=== PATIENT | female | born 1950 | race Caucasian/White ===

== ENCOUNTER 2017-04-20 06:50 | Inpatient (IN) | payer OTHER, MEDICAID ==
[~2017-04-20] VITALS: Ht 160 cm; Wt 87.1 kg
[2017-04-20 07:34] VITALS: BP 149/85
--- NOTE | 2017-04-20 07:41 | NUR ---
Patient transferred to bed 5 via wheelchair by tech. RN evaluating patient at bedside.
--- NOTE | 2017-04-20 07:44 | NUR ---
PATIENT PT PRESENTS TO ER W/C/O RECTAL BLEEDING R/T CONSTIPATION X2 DAYS. HX DM, HTN. .PT STATES SHE FEELS NAUSEOUS BUT DENIES VOMITTING; SKIN IS PINK/WARM/DRY; AAOX4 WITH EVEN AND STEADY GAIT; LUNGS CLEAR BL; HR EVEN AND REGULAR; PT DENIES ANY FEVER, CP, SOB, OR COUGH AT THIS TIME; PATIENT STATES PAIN OF 9/10 AT THIS TIME;PATIENT POSITIONED FOR COMFORT; HOB ELEVATED; BEDRAILS UP X2; BED DOWN. ER MD MADE AWARE OF PT STATUS.
--- NOTE | 2017-04-20 07:56 | NUR ---
CHRISTIANO JESUS AT BEDSIDE.
[2017-04-20] MEDS ORDERED: MORPHINE SULFATE 4 MG/ML SYR IVP ONE (08:00)
[2017-04-20] MEDS ORDERED: NACL 0.9% 1,000 ML IV SCH (08:00)
[2017-04-20] MEDS ORDERED: ONDANSETRON 4 MG/2 ML VIAL IVP ONE (08:00)
--- NOTE | 2017-04-20 08:16 | NUR ---
WENT TO CT SCAN ACCOMPANIED BY TECH.
[2017-04-20 08:41] LABS: HEMATOCRIT 41.8 % (36-48); HEMOGLOBIN 13.8 g/dL (12.0-16.0); MEAN CORPUSCULAR HEMOGLOBIN 30 pg (27-31); MEAN CORPUSCULAR HGB CONC 33 g/dL (33-37); MEAN CORPUSCULAR VOLUME 90 fL (80-94); PLATELET COUNT (AUTO) 411 K/uL (140-450); RED BLOOD CELL COUNT(AUTO) 4.66 MIL/uL (4.20-5.40); RED CELL DISTRIBUTION WIDTH 12.1 % (11.6-13.7); WHITE BLOOD COUNT (AUTO) 19.6 K/uL (4.8-10.8)
[2017-04-20 09:01] LABS: ALBUMIN 4.1 g/dL (3.4-5.0); ANION GAP 19.4 (8-16); CARBON DIOXIDE 21.4 mmol/L (21-32); CREATININE 1.3 mg/dL (0.6-1.3); POTASSIUM 3.8 mmol/L (3.5-5.1); TOTAL BILIRUBIN 0.9 mg/dL (0.0-1.0)
--- NOTE | 2017-04-20 09:17 | NUR ---
DAUGHTER AT BEDSIDE;NO ACUTE DISTRESS NOTED;WILL CONTINUE TO MONITOR PT.
[2017-04-20 09:21] LABS: LYMPHOCYTES % (MANUAL) 17 % (20-46); MONOCYTES % (MANUAL) 3 % (5-12)
--- NOTE | 2017-04-20 09:42 | NUR ---
ASKED PT 3 X IF PT CAN GIVE URINE SPECIMEN;PT STATES "I CAN'T PEE RT NOW"
[2017-04-20] MEDS ORDERED: metroNIDAZOLE 500 MG/NS PREMIX 100 ML IV ONE (10:20)
[2017-04-20] MEDS ORDERED: PIPERACILLIN/TAZOBACTAM 4.5 GM in DEXTROSE 5% 100 ML IV ONE (10:20)
--- NOTE | 2017-04-20 10:30 | NUR ---
Estefany scott in [facility] - 04/20/17 at 1033 by ELIAS CALLED LAB;TALKED TO NOEMY;SHE SAID SHE HAS ALREADY DRAW BLOOD FOR BLOOD CULTURE;
--- NOTE | 2017-04-20 10:30 | NUR ---
CALLED LAB;TALKED TO MICHAEL;SHE SAID SHE HAS ALREADY DRAW BLOOD FOR BLOOD CULTURE;
[2017-04-20] MEDS ORDERED: PIPERACILLIN/TAZOBACTAM 2.25 GM VIAL IV ONE (10:32)
--- NOTE | 2017-04-20 10:52 | NUR ---
PER ARCHITECTURAL MODELER COLLEEN;1 ST BLOOD CULTURE WAS DRAW AT 0835 AND 2ND BLOOD CULTURE WAS DONE AT 0845;
[2017-04-20] MEDS ORDERED: MORPHINE SULFATE 4 MG/ML SYR IVP PRN (10:55)
[2017-04-20] MEDS ORDERED: DEXTROSE 50% 50 ML SYR IVP PRN (10:55)
[2017-04-20] MEDS ORDERED: LORazepam 2 MG/ML VIAL IVP PRN (10:55)
[2017-04-20] MEDS ORDERED: MORPHINE SULFATE 2 MG/ML SYR IVP PRN (10:55)
[2017-04-20] MEDS ORDERED: INSULIN LISPRO SLIDING SCALE 100 UNITS/ML VIAL SUBQ PRN (10:55)
[2017-04-20] MEDS ORDERED: ACET-2869 PO (11:19)
[2017-04-20] MEDS ORDERED: ORE25 (11:22)
[2017-04-20] MEDS ORDERED: OMEP20TC12 PO (11:23)
[2017-04-20] MEDS ORDERED: AMLO5TAB PO (11:25)
[2017-04-20] MEDS ORDERED: METF1000 PO (11:26)
[2017-04-20] MEDS ORDERED: ATOR40TA PO (11:27)
[2017-04-20] MEDS ORDERED: LISI30TA6 PO (11:29)
[2017-04-20] MEDS ORDERED: VITD1000 PO (11:30)
[2017-04-20] MEDS: BLOOD GLUCOSE MONITORING 1 DEV DEV FS SCH ×3 (11:30→21:00)
[2017-04-20] MEDS ORDERED: CLINICAL MONITORING MC PRN (11:40)
--- NOTE | 2017-04-20 11:47 | NUR ---
PT RESTING ON BED;NO ACUTE DISTRESS NOTED;WILL CONTINUE TO MONITOR PT.
[2017-04-20] MEDS ORDERED: ONDANSETRON 4 MG/2 ML VIAL IVP PRN (12:00)
--- NOTE | 2017-04-20 13:23 | NUR ---
Patient will be admitted to care of DR FLORENTINO. Admited to MS. Will go to room 110 B. Belongings list completed. Report to YAMILET GAR.
[2017-04-20 13:40] VITALS: BP 134/74
[2017-04-20] MEDS: metroNIDAZOLE 500 MG/NS PREMIX 100 ML IV SCH ×2 (13:48→22:20)
[2017-04-20] MEDS: NACL 0.9% 1,000 ML IV SCH ×2 (13:50→20:52)
[2017-04-20] MEDS ORDERED: LEVOFLOXACIN 750 MG/D5W PREMIX 150 ML IV SCH (14:00)
--- NOTE | 2017-04-20 14:34 | NUR ---
PT RECEIVED FROM ED VIA [employer] AT 1340, PT IS AWAKE ALERT AND OREINTED X4. C/O ABD PAIN 11/09. NO RESP DISTRESS NOTED. NS AT 100/HE WELL FLAGYL STARTED. NO TELE ORDERS FOR PT. PT IS NPO FOR NOW. NO V/V NOTED OE REPORTED. V/S STABLE.
[2017-04-20 16:20] VITALS: BP 126/55
--- NOTE | 2017-04-20 19:10 | NUR ---
RECD. RESTING IN BED, AWAKE, A/OX4. RESPIRATION EVEN AND UNLABORED. IV OF NS AT 100 ML/HR INFUSING, RIGHT AC G20. AMBULATORY TO THE BR. SAFETY MEASURES ENFORCED. PLAN OF CARE FOR THE SHIFT DISCUSSED. VERBALIZED UNDERSTANDING. NPO. DENIES PAIN 0/10.
--- NOTE | 2017-04-20 19:15 | NUR ---
Patient's Plan of Care was discussed and reviewed with SOLE INKER: MICHAEL CARBALLO
--- NOTE | 2017-04-20 19:35 | NUR ---
MORPHINE SULFATE 2MG IVP GIVEN AT 183 FOR COMPLAINT OF ABD PAIN 01/09. PT IS CURRENTLY IN BED TALKING TO DR FLORENTINO. PT; DAUGHTER IN THE ROOM TALKING TO MD WELL. NO N/V NOTED. PT WAS ASSISTED UP TO THE BATHROOM. PT'S HOME MEDICATION GIVEN TO HER DAUGHTER TO TAKE HOME.
[2017-04-20 20:00] VITALS: BP 107/52
--- NOTE | 2017-04-20 21:00 | NUR ---
NO SNACK GIVEN, PATIENT IS NPO. BS - 127. ASYMPTOMATIC.
[2017-04-21] VITALS: BP 110/58
--- NOTE | 2017-04-21 | NUR ---
STATED NO MORE DIARRHEA SINCE 1899, WILL CONTINUE TO MONITOR, NO NAUSEA NOTED.
--- NOTE | 2017-04-21 05:00 | NUR ---
INSTRUCTED TO COLLECT URINE TO BE SENT TO THE LABORATORY. VERBALIZED UNDERSTANDING.
[2017-04-21] MEDS: metroNIDAZOLE 500 MG/NS PREMIX 100 ML IV SCH ×2 (05:50→13:40)
--- NOTE | 2017-04-21 06:00 | NUR ---
SENT TO LAB URINE FOR TEST.
[2017-04-21 06:46] LABS: BASOPHILS # (AUTO) 0.1 K/uL (0.00-0.22); BASOPHILS % (AUTO) 0.6 % (0.0-2.0); EOSINOPHILS # (AUTO) 0.1 K/uL (0-0.4); EOSINOPHILS % (AUTO) 0.8 % (0.0-4.0); HEMATOCRIT 32.9 % (36-48); HEMOGLOBIN 10.9 g/dL (12.0-16.0); LYMPHOCYTES # (AUTO) 2.2 K/uL (2.5-16.5); LYMPHOCYTES % (AUTO) 19.4 % (20.5-51.1); MEAN CORPUSCULAR HEMOGLOBIN 30 pg (27-31); MEAN CORPUSCULAR HGB CONC 33 g/dL (33-37); MEAN CORPUSCULAR VOLUME 91 fL (80-94); MONOCYTES # (AUTO) 0.6 K/uL (0.8-1.0); MONOCYTES % (AUTO) 5.7 % (1.7-9.3); NEUTROPHILS # (AUTO) 8.2 K/uL (1.8-7.7); NEUTROPHILS % (AUTO) 73.5 % (42.2-75.2); PLATELET COUNT (AUTO) 328 K/uL (140-450); RED BLOOD CELL COUNT(AUTO) 3.62 MIL/uL (4.20-5.40); RED CELL DISTRIBUTION WIDTH 12.2 % (11.6-13.7); WHITE BLOOD COUNT (AUTO) 11.2 K/uL (4.8-10.8)
--- NOTE | 2017-04-21 06:47 | NUR ---
NO DIARRHEA NOTED DURING SHIFT. CONDITION REMAIN STABLE. WILL ENDORSE TO AM NURSE FOR CONTINUITY OF CARE.
[2017-04-21 06:48] LABS: APPEARANCE,URINE SL CLOUDY (CLEAR); BILIRUBIN,URINE NEGATIVE (NEGATIVE); BLOOD, URINE NEGATIVE (NEGATIVE); COLOR,URINE YELLOW (YELLOW); LEUKOCYTE ESTERASE ,URINE NEGATIVE (NEGATIVE); NITRITE, URINE NEGATIVE (NEGATIVE); UGLUCOSE NEGATIVE (NEGATIVE)
[2017-04-21] MEDS: NACL 0.9% 1,000 ML IV SCH (07:07)
[2017-04-21 07:10] LABS: RBC,URINE NONE SEEN /HPF (0-5); WBC,URINE 0-5 (RARE) /HPF (0-5)
--- NOTE | 2017-04-21 07:25 | NUR ---
RECEIVED REPORT FROM THE PEARL GLUE DRIER NURSE AT BEDSIDE FOR CONTINUITY OF CARE. PT IS SLEEPING. WILL BE BACK TO ASSESS PT.
[2017-04-21 07:28] LABS: CHOL/HDL RATIO 4.4 (1-4.5)
[2017-04-21 07:30] LABS: ALBUMIN 2.8 g/dL (3.4-5.0); ANION GAP 12.7 (8-16); CARBON DIOXIDE 24.2 mmol/L (21-32); CREATININE 0.9 mg/dL (0.6-1.3); POTASSIUM 3.9 mmol/L (3.5-5.1); TOTAL BILIRUBIN 0.5 mg/dL (0.0-1.0)
[2017-04-21 07:34] LABS: MAGNESIUM 1.8 mg/dL (1.8-2.4)
[2017-04-21 08:00] VITALS: BP 130/70
--- NOTE | 2017-04-21 08:00 | NUR ---
PT IS AWAKE AND ORIENTED. INTRODUCED OURSELVES AND UPDATED THE BOARD. PT HAS IV R AC 20G, NS AT 100ML INFUSING. SCD'S ON. SKIN INTACT. LBM: 04/21/17. DENIES ANY DIARRHEA. DENIES ABD PAIN. DENIES GI BLEEDING. DR. FLORENTINO CAME IN AND SAW PT. ORDERED SOFT DIET. TODAY'S PLAN: AMBULATE, TOLERATE DIET, AND D/C TODAY. WILL CONTINUE TO MONITOR PT.
--- NOTE | 2017-04-21 08:45 | NUR ---
PATIENT HAS BEEN SCREENED AND CATEGORIZED HIGH NUTRITION RISK. PATIENT WILL BE SEEN WITHIN 1-2 DAYS OF ADMISSION. 04/20/17-04/21/[address]
[2017-04-21] MEDS ORDERED: ENOXAPARIN 30 MG/0.3 ML SYR SUBQ SCH (09:00)
--- NOTE | 2017-04-21 09:00 | NUR ---
ADMINISTERED LOVENOX ON ABD. PT TOLERATED WELL. EDUCATED PT ON MEDICATION AND WHY IT'S GIVEN SUBCUTANEOUS. PT VERBALIZED UNDERSTANDING. WILL CONTINUE TO MONITOR PT.
--- NOTE | 2017-04-21 10:00 | NUR ---
ASSISTED PT TO THE RESTROOM. PT IS UNSTEADY ON FEET D/T B HIP PAIN. PER PT, PT TO HAVE HIP REPLACEMENT SURGERY SOON. ASSISTED BACK TO BED. RECONNECTED PT TO IV. WILL CONTINUE TO MONITOR PT.
--- NOTE | 2017-04-21 11:40 | NUR ---
JOSIAH CAZARES SPOKE WITH NORMA OF [facility] [phone] AND SHE SAID REVIEWS SHOULD BE SENT TO BOTH [facility] AND [facility]. INITIAL REVIEW FAXED TO [facility] [phone] JOSIAH George PH [phone] AND TO [facility] [phone], PH [phone]
--- NOTE | 2017-04-21 12:30 | NUR ---
TRIED EATING LUNCH. SOFT DIET. AT 2 SPOONFULS OF EVERYTHING. SLIGHT STOMACH DISCOMFORT. WILL CONTINUE TO MONITOR PT.
[2017-04-21] MEDS ORDERED: LEVOFLOXACIN 750 MG/D5W PREMIX 150 ML IV SCH (15:00)
--- NOTE | 2017-04-21 15:40 | NUR ---
PT WANTS TO GO HOME. DAUGHTER AT BEDSIDE. WILL START DISCHARGE PROCESS. PAGED DR. FLORENTINO X2 . NO RETURN CALL. WILL CONTINUE TO MONITOR PT.
[2017-04-21 16:00] VITALS: BP_SYST 135; BP_SYST 93; BP_DIAS 49; BP_DIAS 65
--- NOTE | 2017-04-21 17:00 | NUR ---
DR. FLORENTINO CALLED BACK. WANTS TO GIVE PT RX TO GO HOME WITH. HE STATES HE WILL BE HERE IN THE NEXT 2 HRS HAVE PT WAIT. WILL TALK TO PT.
--- NOTE | 2017-04-21 17:20 | NUR ---
DC INSTRUCTIONS GIVEN TO PT. ANSWERED ALL QUESTIONS. PT VERBALIZED UNDERSTANDING. PT ALREADY HAS AN APPT WITH HER PCP FOR TOMORROW. REMOVED IV,CANNULA INTACT. NO BLEEDING NOTED. ALL ARM BANDS REMOVED. PT IS ANXIOUS TO GET HOME. DID NOT WANT TO WAIT FOR RX FROM MD. WILL GET THEM FROM HER PCP TOMORROW. WILL GET DRESSED AND GET READY TO GO.
--- NOTE | 2017-04-21 17:50 | NUR ---
PT WHEELED OUT BY STUDENT RN. DAUGHTER AND SON IN LAW IN THE CAR WAITING. ALL PERSONAL BELONGING SENT WITH DAUGHTER TO THE CAR. PT IN STABLE CONDITION.
== END 2017-04-21 17:50 | disposition home or self-care (01) | DRG 392 ==
LOC: MED 06:50 → MTU 10:35
PROVIDERS: ADMIT Hospitalist; ATTEND Hospitalist
DX: K57.32 Diverticulitis of large intestine without perforation or abscess without bleeding (principal); I10 Essential (primary) hypertension; K62.5 Hemorrhage of anus and rectum; E11.9 Type 2 diabetes mellitus without complications; E78.5 Hyperlipidemia, unspecified; E66.9 Obesity, unspecified; M19.90 Unspecified osteoarthritis, unspecified site; Z68.34 Body mass index [BMI] 34.0-34.9, adult; Z90.49 Acquired absence of other specified parts of digestive tract; Z79.899 Other long term (current) drug therapy
CPT/HCPCS: 36415; 80053; 81001; 82948; 83036; 83690; 83735; 84100; 85025; 86886; 86900; 86901; 87081; 96361; 96365; 96375; 99285; J1650; J1815; J1956; J2270; J2405; J2543; J3490; J7030

== ENCOUNTER 2018-11-11 11:39 | Emergency (ER) | payer OTHER, MEDICAID ==
[~2018-11-11] VITALS: Ht 160 cm; Wt 87.1 kg
[~2018-11-11 11:39] MED LIST: AMLO5TAB PO; ATOR40TA PO; HYDR-5122 PO; LISI30TA6 PO; METF1000 PO; OMEP20TC12 PO; ORE25; VITD1000 PO
[2018-11-11 11:46] VITALS: BP 159/74
--- NOTE | 2018-11-11 11:53 | NUR ---
PT AMBULATED TO ED BED 11
--- NOTE | 2018-11-11 11:55 | NUR ---
BIB SELF. AAOX 4 C/O LT LOWER BACK PAIN, LEFT HIP PAIN SINCE WEDNESDAY. PAIN STATES 05/11 RADIATES TO LLQ ABDOMEN, ALSO STATED HAVING DIARRHEA OFF AND ON, WATERY STOOL THIS MORNING. DENIES FEVER OR N/V. DENIES TRAUMA OR INJURY. PT HAD USED HOT PATCHES WITH NO RELIEF. HX OF R SIDE HIP REPLACEMENT. HOB UP. BED SIDE RAILS UP X1. ON LOW BED POSITION, LOCKED. ER MADE AWARE OF PT STATUS.
[2018-11-11] MEDS ORDERED: KETOROLAC 60 MG/2 ML VIAL IM ONE (13:20)
--- NOTE | 2018-11-11 13:41 | NUR ---
ER AT BEDSIDE
[2018-11-11] MEDS ORDERED: MORPHINE SULFATE 4 MG/ML SYR IM ONE (13:45)
[2018-11-11 14:04] VITALS: BP 150/75
--- NOTE | 2018-11-11 14:06 | NUR ---
Patient discharged with v/s stable. Written and verbal after care instructions given and explained. Patient alert, oriented and verbalized understanding of instructions. Ambulatory with steady gait. All questions addressed prior to discharge. ID band removed. Patient advised to follow up with PMD. Rx of IBU, CIPRO,NORCO given. Patient educated on indication of medication including possible reaction and side effects. Opportunity to ask questions provided and answered.
== END 2018-11-11 14:06 | disposition home or self-care (01) ==
LOC: MED 11:39
DX: N39.0 Urinary tract infection, site not specified (principal); E11.9 Type 2 diabetes mellitus without complications; I10 Essential (primary) hypertension; Z90.49 Acquired absence of other specified parts of digestive tract; Z79.84 Long term (current) use of oral hypoglycemic drugs; Z79.899 Other long term (current) drug therapy
CPT/HCPCS: 81002; 96372; 99283; J1885; J2270

== ENCOUNTER 2018-11-13 20:00 | Emergency (ER) | payer OTHER, MEDICAID ==
[~2018-11-13] VITALS: Ht 160 cm; Wt 87.2 kg
[2018-11-13 20:14] VITALS: BP 141/70
--- NOTE | 2018-11-13 21:03 | NUR ---
PT AMBULATED TO BED 9.
--- NOTE | 2018-11-13 21:08 | NUR ---
PT TO ED WITH C/O L LOWER BACK PAIN X 2 DAYS. PT DENIES INJURY OR TRAUMA. SEEN IN ED 11/12/18 AND DX WITH UTI. PT REPORTS BACK PAIN WORSENING OVER 2 DAYS. PT PLACED INTO BED, PENDING MD PEARL.
[2018-11-13] MEDS ORDERED: NACL 0.9% 1,000 ML IV ONE ×2 (21:48)
--- NOTE | 2018-11-13 22:00 | NUR ---
IV START: R AC 20G, FLUSHED WELL W/O RESISTANCE, NO REDNESS OR SWELLING NOTED, TRANSPARENT DRESSING APPLIED. PT TOLERATED WELL.
--- NOTE | 2018-11-13 22:13 | NUR ---
Pt taken to CT via rmoisés.
[2018-11-13 22:14] LABS: APPEARANCE,URINE CLEAR (CLEAR); BILIRUBIN,URINE NEGATIVE (NEGATIVE); BLOOD, URINE NEGATIVE (NEGATIVE); COLOR,URINE YELLOW (YELLOW); LEUKOCYTE ESTERASE ,URINE NEGATIVE (NEGATIVE); NITRITE, URINE NEGATIVE (NEGATIVE); UGLUCOSE NEGATIVE (NEGATIVE)
[2018-11-13 22:14] LABS: BASOPHILS % (AUTO) 0.4 % (0.0-2.0); EOSINOPHILS # (AUTO) 0.1 K/uL (0-0.4); EOSINOPHILS % (AUTO) 1.8 % (0.0-4.0); HEMATOCRIT 38.1 % (36-48); HEMOGLOBIN 12.6 g/dL (12.0-16.0); LYMPHOCYTES # (AUTO) 2.1 K/uL (2.5-16.5); LYMPHOCYTES % (AUTO) 26.4 % (20.5-51.1); MEAN CORPUSCULAR HEMOGLOBIN 29 pg (27-31); MEAN CORPUSCULAR HGB CONC 33 g/dL (33-37); MEAN CORPUSCULAR VOLUME 88.3 fL (80-94); MONOCYTES # (AUTO) 0.5 K/uL (0.8-1.0); MONOCYTES % (AUTO) 5.6 % (1.7-9.3); NEUTROPHILS # (AUTO) 5.3 K/uL (1.8-7.7); NEUTROPHILS % (AUTO) 65.8 % (42.2-75.2); PLATELET COUNT (AUTO) 353 K/uL (140-450); RED BLOOD CELL COUNT(AUTO) 4.31 MIL/uL (4.20-5.40); RED CELL DISTRIBUTION WIDTH 13.9 % (11.6-13.7); WHITE BLOOD COUNT (AUTO) 8.1 K/uL (4.8-10.8)
[2018-11-13 22:28] LABS: PROTHROMBIN TIME 10.1 secs (10.8-13.4)
[2018-11-13 22:29] LABS: ALBUMIN 3.5 g/dL (3.4-5.0); ANION GAP 12.8 (8-16); CARBON DIOXIDE 26.1 mmol/L (21-32); CREATININE 0.9 mg/dL (0.6-1.3); POTASSIUM 3.9 mmol/L (3.5-5.1); TOTAL BILIRUBIN 0.3 mg/dL (0.0-1.0)
[2018-11-13 22:32] LABS: RBC,URINE 0-5 /HPF (0-5); WBC,URINE 0-5 /HPF (0-5)
--- NOTE | 2018-11-13 22:50 | NUR ---
AMBULATORY TO RESTROOM WITHOUT ASSIST.
[2018-11-14] MEDS ORDERED: MORPHINE SULFATE 4 MG/ML SYR IVP ONE (00:05)
[2018-11-14] MEDS ORDERED: KETOROLAC 30 MG/ML VIAL IVP ONE (00:05)
[2018-11-14 01:25] VITALS: BP 150/58
== END 2018-11-14 01:25 | disposition home or self-care (01) ==
LOC: MED 20:00
DX: M54.5 Low back pain (principal); K59.00 Constipation, unspecified; E11.9 Type 2 diabetes mellitus without complications; I10 Essential (primary) hypertension; Z79.891 Long term (current) use of opiate analgesic; Z79.84 Long term (current) use of oral hypoglycemic drugs; Z79.899 Other long term (current) drug therapy; Z90.49 Acquired absence of other specified parts of digestive tract
CPT/HCPCS: 36415; 74176; 80053; 81001; 83605; 83690; 85025; 85610; 87040; 87086; 96374; 96375; 99284; J1885; J2270; J7030

== ENCOUNTER 2020-02-29 20:55 | Inpatient (IN) | payer OTHER, MEDICAID, SELFPAY ==
[~2020-02-29] VITALS: Ht 160 cm; Wt 86.6 kg
[2020-02-29 21:46] VITALS: BP 152/70
--- NOTE | 2020-02-29 21:46 | NUR ---
PT PLACED IN TENT FOR COVID PRECAUTIONS
--- NOTE | 2020-02-29 23:00 | NUR ---
PT W/C ASSISTED TO ER BED 9
[2020-02-29] MEDS ORDERED: NACL 0.9% 1,000 ML IV ONE (23:20)
[2020-02-29] MEDS ORDERED: IBUPROFEN 600 MG TAB PO ONE (23:20)
--- NOTE | 2020-02-29 23:27 | NUR ---
COVID SWAB COLLECTED AND GIVEN TO LAB
--- NOTE | 2020-02-29 23:30 | NUR ---
PT HAS BEEN HAVING FEVER, SOB, PRODUCTIVE COUGH, WITH GREEN PHLEGM, DIFUSE ABD PAIN, AND GENERALIZED WEAKNESS SINCE 02/20/20. NO N/V/D. PT DENIES BEING EXPOSED TO ANYONE WITH COVID. CURRENT TEMP 101.6 ORALLY. O2 SAT ON RA 97%. BED IN LOWEST POSITION ANS SIDERAIL UP X 1 NKA HX - HTN, DM, HYPERLIPEDEMIA
--- NOTE | 2020-02-29 23:30 | NUR ---
LABS DRAWN AT TIME OF IV START AND GIVEN TO COAL WEIGHER
--- NOTE | 2020-02-29 23:36 | NUR ---
X-Ray at bedside.
--- NOTE | 2020-02-29 23:44 | NUR ---
Dr. Duke examining patient.
[2020-02-29 23:45] LABS: BASOPHILS % (AUTO) 0.4 % (0.0-2.0); HEMATOCRIT 41.6 % (36-48); HEMOGLOBIN 13.5 g/dL (12.0-16.0); LYMPHOCYTES # (AUTO) 1.2 K/uL (2.5-16.5); LYMPHOCYTES % (AUTO) 14.5 % (20.5-51.1); MEAN CORPUSCULAR HEMOGLOBIN 29 pg (27-31); MEAN CORPUSCULAR HGB CONC 33 g/dL (33-37); MEAN CORPUSCULAR VOLUME 88.1 fL (80-94); MONOCYTES # (AUTO) 0.5 K/uL (0.8-1.0); MONOCYTES % (AUTO) 5.6 % (1.7-9.3); NEUTROPHILS # (AUTO) 6.4 K/uL (1.8-7.7); NEUTROPHILS % (AUTO) 79.5 % (42.2-75.2); PLATELET COUNT (AUTO) 232 K/uL (140-450); RED BLOOD CELL COUNT(AUTO) 4.73 MIL/uL (4.20-5.40); RED CELL DISTRIBUTION WIDTH 14.2 % (11.6-13.7)
[2020-03-01 00:05] LABS: ALBUMIN 3.6 g/dL (3.4-5.0); ANION GAP 17.6 (8-16); CARBON DIOXIDE 23.3 mmol/L (21-32); CREATININE 1.1 mg/dL (0.6-1.3); POTASSIUM 3.9 mmol/L (3.5-5.1); TOTAL BILIRUBIN 0.5 mg/dL (0.0-1.0)
--- NOTE | 2020-03-01 01:01 | NUR ---
PT PLACED ON BEDSIDE MONITOR, STATES SHE IS FEELING A LITTLE BETTER, TEMP 98.3
[2020-03-01] MEDS ORDERED: PIPERACILLIN/TAZOBACTAM 3.375 GM in DEXTROSE 5% 50 ML IV ONE (01:20)
[2020-03-01] MEDS ORDERED: PIPERACILLIN/TAZOBACTAM 3.375 GM VIAL IV ONE (01:27)
--- NOTE | 2020-03-01 01:30 | NUR ---
PER CHAIM SANDOVAL, COLLECT BLOOD CULTURES PRIOR TO ATB INFUSION. ORDER CARRIED OUT.
[2020-03-01] MEDS ORDERED: HYDROcodone/APAP 5/325 MG 1 TAB TAB PO PRN (02:50)
[2020-03-01] MEDS ORDERED: LORazepam 2 MG/ML VIAL IVP PRN (02:50)
[2020-03-01] MEDS ORDERED: ACETAMINOPHEN 325 MG TAB PO PRN (02:50)
[2020-03-01] MEDS ORDERED: ONDANSETRON 4 MG/2 ML VIAL IVP PRN (02:50)
--- NOTE | 2020-03-01 03:24 | NUR ---
PT SLEEPING AT THIS TIME, O2 SAT 90%, PLACED O2 2L NC. PT REMAINS ON BEDSIDE MONITOR.
[2020-03-01] MEDS ORDERED: METO100T14 PO (03:38)
[2020-03-01] MEDS ORDERED: FISH100053 PO (03:38)
[2020-03-01] MEDS ORDERED: LIP80 PO (03:38)
[2020-03-01 04:24] LABS: FIBRINOGEN 567 mg/dL (200-400)
[2020-03-01 04:27] LABS: D-DIMER 692 ng/ml (0-400)
[2020-03-01] MEDS ORDERED: cefTRIAXone 1,000 MG VIAL ONE (06:33)
--- NOTE | 2020-03-01 07:15 | NUR ---
REPORT GIVEN TO LOC WOODARD
--- NOTE | 2020-03-01 07:16 | NUR ---
Report received from YAMILET Blanca. Resume care at this time.
--- NOTE | 2020-03-01 07:20 | NUR ---
ENDORSED STABLE PATIENT TO MANAGER RESEARCH AND DEVELOPMENT NURSE FOR CONTINUITY OF CARE. Addendum: 03/01/20 at 2111 by Nils Zhou RN 1919
[2020-03-01] MEDS: amLODIPine 5 MG TAB PO SCH (09:00)
[2020-03-01] MEDS: lisinopriL 10 MG TAB PO SCH (09:00)
[2020-03-01] MEDS ORDERED: lisinopriL 20 MG TAB ONE (09:15)
[2020-03-01] MEDS: ENOXAPARIN 40 MG/0.4 ML SYR SUBQ SCH (09:26)
--- NOTE | 2020-03-01 09:50 | NUR ---
PAGED DR. ROCA REGARDING PT BP 101/36, HR 47. DR. ROCA MADE AWARE AND DC AMLODIPINE 5MG AND LISINOPRIL 40MG PER DR. ROCA'S ORDER.
--- NOTE | 2020-03-01 10:42 | NUR ---
ART INSTRUCTOR NOTE: STEPHANI CONTACTED PATIENT'S CHILD, FOREST ALEXANDER [phone] TO COMPLETE ASSESSMENT. STEPHANI LEFT .
--- NOTE | 2020-03-01 11:25 | NUR ---
Patient will be admitted to care of PNA. Admited to TELE. Will go to room 105A. Belongings list completed. Report to YAMILET GOTTLIEB.
[2020-03-01 11:30] VITALS: BP 122/71
--- NOTE | 2020-03-01 11:30 | NUR ---
RECEIVED REPORT FROM ER NURSE LOC. ADMITTED PT TO TELE. PATIENT IS AAOX4, AMBULATORY WITH CANE AND WITH ASSISTANCE. NO ACUTE RESPIRATORY DISTRESS. OXYGEN @2L VIA NC. VS CHECKED, SINUS BRADYCARDIA. CCHO 60 DIET. PATIENT HAS OCCASIONAL DRY COUGH. ADMISSION ASSESSMENT DONE, MRSA NARES COLLECTED AND WILL SEND TO LAB. INSTRUCTED PT HOW TO USE THE CALL LIGHT, BED IN LOW POSITION, SAFETY MEASURE IN PLACE. COVID TEST RESULT PENDING, INITIAL DROPLET PRECAUTION, SIGNS POSTED. WILL CONTINUE TO MONITOR.
[2020-03-01] MEDS: AZITHROMYCIN 500 MG in DEXTROSE 5% 250 ML IV SCH (13:16)
[2020-03-01 16:00] VITALS: BP 133/64
--- NOTE | 2020-03-01 16:00 | NUR ---
PATIENT HAS HX OF DM, INFORMED MD. ORDER OBTAINED, ACCU CHECK TWICE A DAY AND HUMALOG PER SLING SCALES. CCHO 60 DIET.
--- NOTE | 2020-03-01 16:08 | NUR ---
PATIENT HAS BEEN SCREENED AND CATEGORIZED MODERATE NUTRITION RISK. PATIENT WILL BE SEEN WITHIN 3-5 DAYS OF ADMISSION. 03/03/20 03/05/[address]
--- NOTE | 2020-03-01 19:20 | NUR ---
ENDORSED STABLE PATIENT TO ENVIRONMENTAL FIELD TEAM MEMBER NURSE FOR CONTINUITY OF CARE.
--- NOTE | 2020-03-01 19:20 | NUR ---
RECEIVED PT AAO X4 , NID - O2 SAT WNL , W/ O2 AT 2LPM/NC , ON TELE MONITOR . IV SITE INTACT AND PATENT , AMBULATORY W/ ASSISTIVE CANE - FALL RISK - BED ALARM ON . SAFETY MEASURE IN PLACE - CALL LIGHT WITHIN REACH . PLAN OF CARE DISCUSSED AND VERBALIZE UNDERSTANDING. WILL CONT. TO MONITOR.
[2020-03-01 20:00] VITALS: BP 122/80
[2020-03-01] MEDS: BLOOD GLUCOSE MONITORING 1 DEV DEV FS SCH (22:00)
--- NOTE | 2020-03-01 22:00 | NUR ---
PT WENT TO BATH ROOM , AFTER SHE SHE THE BATH AND BACK TO BED - SHE HAS SLIGHTHLY SOB - PUT ON O2 AT ONCE - AND HOOK TO O2 SAT AT ONCE - O2 SAT 87 CLOSELY WATCHING - THEN THE O2 SAT BEGINS TO GO BACK TO WNL - REMINDING HER NEXT SHE GOT PEE U- USE BEDSIDE COMMODE INSTEAD OF GO TO REST ROOM . FOR CLOSELY WATCH . CALL LIGHT WITHIN REACH .
[2020-03-01] MEDS: INSULIN LISPRO SLIDING SCALE 100 UNITS/ML VIAL SUBQ PRN (22:20)
[2020-03-02] VITALS: BP 118/60
--- NOTE | 2020-03-02 | NUR ---
MADE ROUNDS , NO S/SX OF ACUTE DISTRESS NOTED . WILL CONT. TO MONITOR .
--- NOTE | 2020-03-02 02:00 | NUR ---
SLEEPING - CHEST RISE AND FALL EQUALLY .O2 SAT WNL.
[2020-03-02 04:00] VITALS: BP 115/70
--- NOTE | 2020-03-02 04:00 | NUR ---
ON TELE MONITOR - SB - NO COMPLAIN MADE , O2 SAT WNL . RESTING ON BED COMFROTABLY . WILL CONT. TO MONITOR
--- NOTE | 2020-03-02 06:00 | NUR ---
MADE ROUNDS , NO COMPLAIN MADE . WILL CONT. TO MONITOR - CALL LIGHT WITHIN REACH .
[2020-03-02 06:16] LABS: BASOPHILS % (AUTO) 0.3 % (0.0-2.0); HEMATOCRIT 38.1 % (36-48); HEMOGLOBIN 12.2 g/dL (12.0-16.0); LYMPHOCYTES # (AUTO) 1.2 K/uL (2.5-16.5); LYMPHOCYTES % (AUTO) 10.9 % (20.5-51.1); MEAN CORPUSCULAR HEMOGLOBIN 28 pg (27-31); MEAN CORPUSCULAR HGB CONC 32 g/dL (33-37); MEAN CORPUSCULAR VOLUME 88.1 fL (80-94); MONOCYTES # (AUTO) 0.6 K/uL (0.8-1.0); MONOCYTES % (AUTO) 5.5 % (1.7-9.3); NEUTROPHILS # (AUTO) 9.6 K/uL (1.8-7.7); NEUTROPHILS % (AUTO) 83.3 % (42.2-75.2); PLATELET COUNT (AUTO) 268 K/uL (140-450); RED BLOOD CELL COUNT(AUTO) 4.32 MIL/uL (4.20-5.40); RED CELL DISTRIBUTION WIDTH 14.1 % (11.6-13.7); WHITE BLOOD COUNT (AUTO) 11.5 K/uL (4.8-10.8)
--- NOTE | 2020-03-02 07:25 | NUR ---
ENDORSED TO AM SHIFT - PT - STABLE .
--- NOTE | 2020-03-02 07:25 | NUR ---
RECEIVED PATIENT FROM NIGHT NURSE. PATIENT IS AWAKE, ALERT COMFORTABLY IN BED. RESP EVEN AND UNLABORED ON 2L NC. 97%. PATIENT DENIES OF PAIN AT THIS TIME. DROPLET PRECAUTION OBSERVED. PLAN OF CARE DISCUSSED WITH PATIENT. PATIENT VERBALIZED UNDERSTANDING. CALL LIGHT WITHIN REACH. BED IN LOW POSITION. WILL CONTINUE TO MONITOR.
[2020-03-02 08:00] VITALS: BP 125/58
[2020-03-02] MEDS: lisinopriL 10 MG TAB PO SCH (09:00)
[2020-03-02] MEDS: amLODIPine 5 MG TAB PO SCH (09:00)
--- NOTE | 2020-03-02 09:24 | NUR ---
DC PLANN[age] YRS OLD FEMALE PATIENT WAS ADMITTED FROM HOME WITH A DX OF PNEUMONIA. PT LIZ A HX OF DM, HLD, AND HTN. CXR SHOWED MULTIFOCAL BILATERAL INTERSTITIAL OPACIFICATION CANNOT EXCLUDE MULTIFOCAL PNEUMONIA. ADMINISTERED IVF, IV ABX AZITHROMYCIN, ROCEPHIN AND DECADRON PO. COVID TEST PENDING. DC PLAN TO GO HOME WHEN STABLE CM TO FOLLOW. Addendum: 03/04/20 at 1646 by Sridevi Ellis ON O2 AT 4LPM/NC, O2 SAT 96%. COVID (+). ON REMDESIVIR, DECADRON, AZITHROMYCIN AND ROCEPHIN. Addendum: 03/05/20 at 1153 by Regina Sampson DC PLANNING: PER DR GUERRA PROGRESS NOTES PT WILL NEED HOME O2 AND DC ON WEDNESDAY. CALLED [employer] [phone] SPOKE WITH CHARLIE PERALTA THE AUTH # [id number] FOR [facility]. CM TO FOLLOW Addendum: 03/05/20 at 1545 by Sofia Ambrosio CM SPOKE TO SANDY AT [facility] THEY ARE REQUESTING A PRESCRIPTION TO BE FAXED OVER FROM THE DOCTOR. HE IS GOING TO FAX OVER A SCRIPT. Addendum: 03/05/20 at 1548 by Sofia Ambrosio CM PROVIDED SANDY FROM [facility] VERBAL AUTH FROM [facility]. Addendum: 03/05/20 at 1612 by Sofia Ambrosio CM FOLLOWED UP WITH KRYSTIN AT [facility] TO VERIFY THEY HAVE RECEIVED AUTH. SHE VERIFIED THAT THEY RECEIVED AUTH, JUST WAITING ON PRESCRIPTION TO BE FAXED BACK. WE WILL HAVE PRESCRIPTION SIGNED BY THE DOCTOR TOMORROW MORNING AND FAX IT BACK Addendum: 03/06/20 at 1134 by Sofia Ambrosio CM FAXED PRESCRIPTION BACK TO [facility]. FOLLOWED UP WITH [facility] AND SPOKE WITH IRINA. THE PATIENT HAS A 20% OUT OF POCKET CO PAYMENT Addendum: 03/06/20 at 1203 by Sofia Ambrosio CM PATIENT IS REFUSING HOME 02. DR. HUNT AND RN JORDI IS AWARE THAT PATIENT DOES NOT WANT HOME 02. CONTACTED [facility] TO CANCEL ORDER. Addendum: 03/06/20 at 1211 by Sofia Ambrosio CM SPOKE WITH SANTIAGO AT [facility] TO CANCEL ORDER
--- NOTE | 2020-03-02 09:30 | NUR ---
BLOOD SUGAR 179. PATIENT REFUSED INSULIN BECAUSE SHE DIDN'T EAT MUCH OF HER BREAKFAST. WILL CONTINUE TO MONITOR.
[2020-03-02] MEDS: ENOXAPARIN 40 MG/0.4 ML SYR SUBQ SCH ×2 (09:36→21:00)
[2020-03-02] MEDS: BLOOD GLUCOSE MONITORING 1 DEV DEV FS SCH ×2 (09:37→21:00)
--- NOTE | 2020-03-02 09:38 | NUR ---
PATIENT WAS ASSISTED OUT OF BED. PATIENT AMBULATED WITH STEADY SLOW PACE WITH HER CANE. STAFF NEARBY FOR ASSIST. HEPARIN GIVEN SQ. ZESTRIL AND NORVASC HELD D/T LOW BP AND HR. 125/58 HR 60. RESP EVEN AND UNLABORED ON 2L NC 98%. PATIENT DENIES OF PAIN AT THIS TIME. CALL LIGHT WITHIN REACH. WILL CONTINUE TO MONITOR.
[2020-03-02 12:00] VITALS: BP 112/57
[2020-03-02] MEDS: AZITHROMYCIN 500 MG in DEXTROSE 5% 250 ML IV SCH (13:38)
--- NOTE | 2020-03-02 13:40 | NUR ---
ZITHROMAX GIVEN ORDERED. PATIENT IS ENCOURAGED TO KEEP HER RIGHT ARM STRAIGHT MUCH POSSIBLE TO ALLOW IV ANTIBIOTIC TO FINISH. ARM BOARD WAS REINFORCED AND PATIENT VERBALIZED UNDERSTANDING THE USE. RESP EVEN AND UNLABORED ON 2LNC. DENIES OF PAIN AT THIS TIME. WILL CONTINUE TO MONITOR.
[2020-03-02 16:00] VITALS: BP 133/59
--- NOTE | 2020-03-02 16:50 | NUR ---
PATIENT ASSISTED OUT OF BED TO USE THE BATHROOM. SLOW STEADY GAIT NOTED. RESP EVEN AND UNLABORED ON 2LNC. WILL CONTINUE TO MONITOR.
--- NOTE | 2020-03-02 19:15 | NUR ---
RECEIVED CONTINUITY OF CARE FROM AM NURSE. PATIENT IS IN STABLE CONDITION, RESTING IN BED. A/OX 4, 3L O2 VIA NC IN PLACE. TELE MONITOR IN PLACE. SKIN IS WARM AND DRY. DISCUSSED PLAN OF CARE WITH PATIENT. CALL LIGHT IS WITHIN REACH. SAFETY PRECAUTIONS IN PLACE. ALL STAFF TO OBSERVE ISOLATION MEASURES. WILL CONTINUE TO MONITOR.
--- NOTE | 2020-03-02 19:20 | NUR ---
ENDORSED PATIENT TO NIGHT NURSE. PATIENT IN STABLE CONDITION.
[2020-03-02 20:00] VITALS: BP 105/55
--- NOTE | 2020-03-02 21:20 | NUR ---
CHECKED ON PATIENT AND ADMINISTERED SCHEDULED MEDICATION. ASSESS FSBS AND RECEIVED 251, INITIATED PROTOCOL. PATIENT TOLERATED WELL. WILL CONTINUE TO MONITOR.
--- NOTE | 2020-03-02 23:01 | NUR ---
PATIENT IS RESTING IN BED. NO SIGNS OF DISTRESS NOTED. WILL CONTINUE TO MONITOR.
[2020-03-02] MEDS: INSULIN LISPRO SLIDING SCALE 100 UNITS/ML VIAL SUBQ PRN (23:12)
[2020-03-03] VITALS: BP 113/56
--- NOTE | 2020-03-03 01:02 | NUR ---
PATIENT IS SLEEPING. VISIBLE CHEST RISE NOTED. WILL CONTINUE TO MONITOR.
[2020-03-03 04:00] VITALS: BP 141/73
[2020-03-03 06:24] LABS: BASOPHILS % (AUTO) 0.2 % (0.0-2.0); HEMATOCRIT 35.8 % (36-48); HEMOGLOBIN 11.7 g/dL (12.0-16.0); LYMPHOCYTES # (AUTO) 0.7 K/uL (2.5-16.5); MEAN CORPUSCULAR HEMOGLOBIN 29 pg (27-31); MEAN CORPUSCULAR HGB CONC 33 g/dL (33-37); MEAN CORPUSCULAR VOLUME 88.4 fL (80-94); MONOCYTES # (AUTO) 0.3 K/uL (0.8-1.0); MONOCYTES % (AUTO) 4.5 % (1.7-9.3); NEUTROPHILS # (AUTO) 5.7 K/uL (1.8-7.7); NEUTROPHILS % (AUTO) 84.3 % (42.2-75.2); PLATELET COUNT (AUTO) 268 K/uL (140-450); RED BLOOD CELL COUNT(AUTO) 4.05 MIL/uL (4.20-5.40); RED CELL DISTRIBUTION WIDTH 14.4 % (11.6-13.7); WHITE BLOOD COUNT (AUTO) 6.8 K/uL (4.8-10.8)
[2020-03-03 06:45] LABS: ALBUMIN 2.7 g/dL (3.4-5.0); ANION GAP 13.8 (8-16); CARBON DIOXIDE 23.3 mmol/L (21-32); CREATININE 0.8 mg/dL (0.6-1.3); POTASSIUM 4.1 mmol/L (3.5-5.1); TOTAL BILIRUBIN 0.3 mg/dL (0.0-1.0)
--- NOTE | 2020-03-03 07:20 | NUR ---
CONTINUITY OF CARE WAS ENDORSED TO AM NURSE. PATIENT IN STABLE CONDITION.
--- NOTE | 2020-03-03 07:25 | NUR ---
RECEIVED PATIENT FROM NIGHT NURSE. PATIENT IS AWAKE AND ALERT. RESP EVEN AND UNLABORED WITH 3L NC. SKIN WARM TO TOUCH. DENIES OF PAIN AT THIS TIME. NO NOTED DISTRESS. PLAN OF CARE DISCUSSED WITH PATIENT, PATIENT VERBALIZED UNDERSTANDING. CALL LIGHT WITHIN REACH. WILL CONTINUE TO MONITOR.
[2020-03-03 08:00] VITALS: BP 125/61
[2020-03-03] MEDS ORDERED: ENOXAPARIN 40 MG/0.4 ML SYR SUBQ ONE (08:42)
[2020-03-03] MEDS: ENOXAPARIN 40 MG/0.4 ML SYR SUBQ SCH (08:43)
[2020-03-03] MEDS: amLODIPine 5 MG TAB PO SCH (08:48)
[2020-03-03] MEDS: lisinopriL 10 MG TAB PO SCH (08:49)
--- NOTE | 2020-03-03 08:50 | NUR ---
MORNING ROUTINE MEDICATIONS GIVEN. PATIENT TOLERATED WELL. PATIENT AMBULATED TO THE BATHROOM WITH STANDBY ASSIST. PATIENT WAS FEELING SOB UPON AMBULATING BACK TO BED. PATIENT THEN SIT ON CHAIR, INSTRUCTED PATIENT TO FOCUS ON HER BREATHING AND PATIENT WAS ABLE TO GET RELIEF. OXYGEN INCREASED TO 4 L NC. PATIENT TOLERATED WELL. O2 SAT 94%. PATIENT DENIES OF PAIN AT THIS TIME. BEDSIDE COMMODE WAS BROUGHT TO PATIENT ROOM FOR FUTURE USE. PATIENT VERBALIZED UNDERSTANDING AND WILL ASK FOR ASSIST. CALL LIGHT WITHIN REACH. WILL CONTINUE TO MONITOR.
[2020-03-03] MEDS: INSULIN LISPRO SLIDING SCALE 100 UNITS/ML VIAL SUBQ PRN ×2 (09:21→20:48)
[2020-03-03] MEDS: BLOOD GLUCOSE MONITORING 1 DEV DEV FS SCH ×2 (09:21→20:46)
[2020-03-03 12:00] VITALS: BP 148/69
[2020-03-03] MEDS ORDERED: remdesivir COMMUNICATION ORDER 1 EA MISC MC PRN (12:05)
[2020-03-03] MEDS: AZITHROMYCIN 500 MG in DEXTROSE 5% 250 ML IV SCH (12:51)
--- NOTE | 2020-03-03 12:55 | NUR ---
PATIENT IS SITTING UP COMFORTABLY IN BED. NO NOTED DISTRESS. RESP EVEN AND UNLABORED. PATIENT'S ENCOURAGED FLUID TOLERATED. ZITHROMAX GIVEN IVPB. CALL LIGHT WITHIN REACH. WILL CONTINUE TO MONITOR.
[2020-03-03] MEDS: PROMETH/CODEINE 6.25-10MG/5ML 5 ML UDC PO PRN (15:02)
[2020-03-03 16:00] VITALS: BP 127/60
[2020-03-03] MEDS ORDERED: REMDESIVIR (EUA) 200 MG in NACL 0.9% 100 ML IV SCH (16:30)
[2020-03-03] MEDS ORDERED: CLINICAL MONITORING MC PRN (16:30)
--- NOTE | 2020-03-03 17:21 | NUR ---
PATIENT IS SITTING IN BED COMFORTABLY. NO NOTED DISTRESS AT THIS TIME. COUGH IS IMPROVED WITH PHENERGAN GIVEN PRIOR. REMDESIVIR GIVEN. CALL LIGHT IN PLACE. WILL CONTINUE TO MONITOR.
[2020-03-03] MEDS: ALBUTEROL HFA MDI 90 MCG/ACTUATION 8 GM INH SCH (18:00)
--- NOTE | 2020-03-03 18:48 | NUR ---
PATIENT IS SITTING UP IN BED EATING DINNER. RESP EVEN AND UNLABORED ON 4L NC. DENIES OF PAIN AT THIS TIME. CALL LIGHT WITHIN REACH. WILL CONTINUE TO MONITOR.
--- NOTE | 2020-03-03 19:14 | NUR ---
RECEIVED BEDSIDE REPORT FROM DAY RN. PT IS AAOX4. RESPIRATIONS ARE EQUAL AND UNLABORED ON 4L NC. SAT WELL 96%. SKIN IS INTACT. C/C FEVER AND BODY ACHES. DX PNA COVID +. ON DROPLET ISOLATION WITH SIGN AT DOOR. IV ON RAC 20G TKO. PT IS AMB WITH ASSIST. POC DISCUSSED WITH PT. PT VERBALIZED UNDERSTANDING. CALL LIGHT IS WITHIN REACH. WILL CONTINUE TO MONITOR.
--- NOTE | 2020-03-03 19:15 | NUR ---
ENDORSED PATIENT TO NIGHT NURSE. PATIENT IN STABLE CONDITION.
[2020-03-03 20:00] VITALS: BP 117/58
[2020-03-03] MEDS: ENOXAPARIN 80 MG/0.8 ML SYR SUBQ SCH (20:46)
--- NOTE | 2020-03-03 20:46 | NUR ---
VSS. BG 264 ADMINISTERED INSULIN PER SLIDING SCALE. LYLA MED GIVEN. MED EDUCATIONS GIVEN. PT VERBALIZED UNDERSTANDING. ALL NEEDS MET. PT RESTING COMFORTABLY IN BED USING CELL PHONE. CALL LIGHT IS WITHIN REACH. WILL CONTINUE TO MONITOR.
--- NOTE | 2020-03-03 22:15 | NUR ---
PT IS RESTING COMFORTABLY IN BED USING CELLPHONE. ALL SAFETY MEASURES ARE IN PLACE. CALL LIGHT IS WITHIN REACH.
[2020-03-04] VITALS: BP 107/50
--- NOTE | 2020-03-04 | NUR ---
VITAL SIGNS ARE WITHIN NORMAL LIMITS. ALL NEED MET. CALL LIGHT IS WITHIN REACH.
--- NOTE | 2020-03-04 02:20 | NUR ---
ROCEPHIN NOW INFUSING PER ORDERS. PT SLEEPING COMFORTABLY IN BED WITH EYES CLOSED. CHEST RISE AND FALL NOTED. CALL LIGHT IS WITHIN REACH.
[2020-03-04 04:00] VITALS: BP 115/58
--- NOTE | 2020-03-04 04:00 | NUR ---
VITAL SIGNS ARE WITHIN NORMAL LIMITS. ALL NEEDS MET. CALL LIGHT IS WITHIN REACH.
[2020-03-04] MEDS: ALBUTEROL HFA MDI 90 MCG/ACTUATION 8 GM INH SCH ×4 (07:00→20:40)
--- NOTE | 2020-03-04 07:20 | NUR ---
RECEIVED REPORT FROM RN PARALEGAL NURSE REGARDING PATIENT CONDITION AND PLAN OF CARE. PATIENT RESTING IN BED, ASLEEP BUT EASILY AROUSABLE, ON 4L VIA NASAL CANNULA. NO ACUTE S/S RESPIRATORY DISTRESS NOTED, DENIES PAIN AT THIS TIME. ALL NEEDS MET, CALL LIGHT WITHIN REACH, WILL CONTINUE TO MONITOR. DROPLET PRECAUTIONS FOLLOWED.
--- NOTE | 2020-03-04 07:20 | NUR ---
GAVE BEDSIDE REPORT TO DAY RN. PT ENDORSED IN STABLE CONDITION.
[2020-03-04 08:00] VITALS: BP 108/62
[2020-03-04 08:19] LABS: ALBUMIN 2.7 g/dL (3.4-5.0); CARBON DIOXIDE 26.9 mmol/L (21-32); CREATININE 0.9 mg/dL (0.6-1.3); POTASSIUM 3.9 mmol/L (3.5-5.1); TOTAL BILIRUBIN 0.3 mg/dL (0.0-1.0)
[2020-03-04 08:39] LABS: BASOPHILS % (AUTO) 0.3 % (0.0-2.0); HEMOGLOBIN 11.4 g/dL (12.0-16.0); LYMPHOCYTES % (AUTO) 14.2 % (20.5-51.1); MEAN CORPUSCULAR HEMOGLOBIN 29 pg (27-31); MEAN CORPUSCULAR HGB CONC 32 g/dL (33-37); MEAN CORPUSCULAR VOLUME 88.2 fL (80-94); MONOCYTES # (AUTO) 0.7 K/uL (0.8-1.0); MONOCYTES % (AUTO) 9.7 % (1.7-9.3); NEUTROPHILS # (AUTO) 5.1 K/uL (1.8-7.7); NEUTROPHILS % (AUTO) 75.8 % (42.2-75.2); PLATELET COUNT (AUTO) 322 K/uL (140-450); RED BLOOD CELL COUNT(AUTO) 3.97 MIL/uL (4.20-5.40); RED CELL DISTRIBUTION WIDTH 14.3 % (11.6-13.7); WHITE BLOOD COUNT (AUTO) 6.8 K/uL (4.8-10.8)
--- NOTE | 2020-03-04 08:45 | NUR ---
RECEIVED REPORT FORM REBECA RN; PT AAOX4 FOLLOWING COMMANDS. AMB @ BEDSIDE, PT USING BEDSIDE COMMODE. +2 RADIAL/PEDAL PULSES, NO EDEMA NOTED. LUNGS DIMINISHED BILATERALLY. PT DENIES CP/SOB @ THIS TIME. PT ON NC 4L. ABD SOFT NON DISTENDED. TOLERATING PO INTAKE. PT VOIDING IN BSC. SKIN INTACT. BED LOCKED IN LOWEST POSITION. IV PATENT RAC [address] PATENT SL/TKO. CALL LIGHT WITHIN REACH. WILL CONTINUE TO OBSERVE.
[2020-03-04] MEDS: amLODIPine 5 MG TAB PO SCH (09:16)
[2020-03-04] MEDS: ENOXAPARIN 80 MG/0.8 ML SYR SUBQ SCH ×2 (09:17→20:10)
[2020-03-04] MEDS: lisinopriL 10 MG TAB PO SCH (09:17)
[2020-03-04] MEDS: INSULIN LISPRO SLIDING SCALE 100 UNITS/ML VIAL SUBQ PRN ×2 (09:18→21:07)
[2020-03-04] MEDS: BLOOD GLUCOSE MONITORING 1 DEV DEV FS SCH ×2 (09:18→21:06)
[2020-03-04] MEDS: PROMETH/CODEINE 6.25-10MG/5ML 5 ML UDC PO PRN (09:24)
--- NOTE | 2020-03-04 09:25 | NUR ---
PT MEDICATED FOR PAIN 6/10 CHEST DISCOMFORT DURING COUGH/ PRN CODEINE WITH PHENERGAN, AND NORCO GIVEN. WILL CONTINUE TO OBSERVE
--- NOTE | 2020-03-04 10:30 | NUR ---
PT EYES CLOSED; AROUSABLE. DENIES PAIN @ THIS TIME WILL CONTINUE TO OBSERVE.
[2020-03-04 12:00] VITALS: BP 104/78
[2020-03-04] MEDS: AZITHROMYCIN 500 MG in DEXTROSE 5% 250 ML IV SCH (13:59)
--- NOTE | 2020-03-04 14:00 | NUR ---
PT HAS EYES CLOSED; AROUSABLE, DENIES PAIN @ THIS TIME. WILL CONTINUE TO OBSERVE.
[2020-03-04 16:00] VITALS: BP 102/64
[2020-03-04] MEDS: REMDESIVIR (EUA) 100 MG in NACL 0.9% 100 ML IV SCH (17:08)
--- NOTE | 2020-03-04 19:37 | NUR ---
REPORT GIVEN TO MOISTURE CONDITIONER OPERATOR FOR CONTINUITY OF CARE.
--- NOTE | 2020-03-04 19:39 | NUR ---
RECEIVED REPORT FROM DAY SHIFT NURSE. PATIENT IN BED RESTING WITH HOB ELEVATED. AAOX4, ABLE TO MAKE NEEDS KNOWN, AND USES BEDSIDE COMMODE. RESPIRATIONS EVEN AND UNLABORED. PT HAS O2 4LPM/NC. SKIN IS WARM, DRY, AND INTACT. ABDOMEN IS SOFT AND NON-TENDER. IV ACCESS ON RIGHT AC G20 PATENT AND INTACT TKO. PT DENIES ANY PAIN OR DISCOMFORT AT THIS TIME. NO REQUESTS MADE. PLAN OF CARE DISCUSSED. PT KEPT COMFORTABLE. SAFETY MEASURES IN PLACE. CALL LIGHT WITHIN REACH. WILL CONTINUE TO MONITOR.
[2020-03-04 20:00] VITALS: BP 132/67
--- NOTE | 2020-03-04 20:10 | NUR ---
VITAL SIGNS STABLE. SCHEDULED MEDICATIONS GIVEN ORDERED. O2 IN PLACE. O2 SAT 97%. RESPIRATIONS EVEN AND UNLABORED. PT DENIES ANY PAIN OR DISCOMFORT. SAFETY MEASURES IN PLACE. CALL LIGHT WITHIN REACH. WILL CONTINUE TO MONITOR.
--- NOTE | 2020-03-04 22:12 | NUR ---
ROUNDS MADE. PT IN BED RESTING WITH HOB ELEVATED. O2 IN PLACE. PT NOT IN DISTRESS. NO REQUESTS MADE. PT KEPT COMFORTABLE. CALL LIGHT WITHIN REACH. WILL CONTINUE TO MONITOR.
[2020-03-05] VITALS: BP 115/50
--- NOTE | 2020-03-05 00:21 | NUR ---
VITAL SIGNS STABLE. PT IN BED RESTING WITH HOB ELEVATED. O2 IN PLACE. PT NOT IN DISTRESS. DENIES ANY PAIN OR DISCOMFORT AT THIS TIME. NO REQUESTS MADE. PT KEPT COMFORTABLE. SAFETY MEASURES IN PLACE. CALL LIGHT WITHIN REACH. WILL CONTINUE TO MONITOR.
--- NOTE | 2020-03-05 02:23 | NUR ---
PT ASLEEP. O2 IN PLACE. RESPIRATIONS EVEN AND UNLABORED. PT NOT IN DISTRESS. ANTIBIOTIC HUNG. IVF INFUSING WELL. SAFETY MEASURES IN PLACE. CALL LIGHT WITHIN REACH. WILL CONTINUE TO MONITOR.
--- NOTE | 2020-03-05 03:52 | NUR ---
VITAL SIGNS TAKEN. HR 47, WITHIN PT'S BASELINE. NO S/SX OF DISTRESS NOTED. O2 IN PLACE. RESPIRATIONS EVEN AND UNLABORED. PT DENIES ANY PAIN OR DISCOMFORT AT THIS TIME. CALL LIGHT WITHIN REACH. WILL CONTINUE TO MONITOR.
[2020-03-05 04:00] VITALS: BP 118/47
[2020-03-05] MEDS: ALBUTEROL HFA MDI 90 MCG/ACTUATION 8 GM INH SCH ×4 (06:00→18:00)
--- NOTE | 2020-03-05 06:15 | NUR ---
PT ASLEEP WITH HOB ELEVATED. O2 IN PLACE. NO S/SX OF DISTRESS NOTED. DENIES ANY PAIN OR DISCOMFORT. PT KEPT COMFORTABLE. NO REQUESTS MADE. CALL LIGHT WITHIN REACH. WILL CONTINUE TO MONITOR.
--- NOTE | 2020-03-05 07:15 | NUR ---
ENDORSED TO DAY SHIFT NURSE FOR CONTINUITY OF CARE. PT IS IN STABLE CONDITION.
--- NOTE | 2020-03-05 07:17 | NUR ---
RECEIVED PATIENT FROM NIGHT NURSE. PATIENT IS AWAKE AND ALERT, ORIENTED X 4. RAC 20 TKO. PATIENT IS IN BED, COMFORTABLE AT THIS TIME. DENIES OF PAIN OR DISTRESS. RESP EVEN AND UNLABORED ON 4LNC. TELE SHOWS SB, WITHIN BASELINE. PLAN OF CARE DISCUSSED WITH PATIENT. PATIENT VERBALIZED UNDERSTANDING. BED IN LOW POSITION. CALL LIGHT WITHIN REACH. WILL CONTINUE TO MONITOR.
[2020-03-05 08:00] VITALS: BP 125/55
[2020-03-05] MEDS: ENOXAPARIN 80 MG/0.8 ML SYR SUBQ SCH ×2 (08:23→20:33)
[2020-03-05] MEDS: lisinopriL 10 MG TAB PO SCH ×2 (08:29→08:56)
[2020-03-05] MEDS: PROMETH/CODEINE 6.25-10MG/5ML 5 ML UDC PO PRN (08:50)
[2020-03-05] MEDS: amLODIPine 5 MG TAB PO SCH (08:53)
--- NOTE | 2020-03-05 08:56 | NUR ---
MORNING ROUTINE MEDICATIONS GIVEN. PHENERGAN GIVEN FOR COUGHING. NORVASC AND ZESTRIL HELD D/T LOW PARAMETERS. PATIENT DENIES OF ANY SOB. OXYGEN INCREASED TO 4L NC. O2 SAT 95%. PATIENT USED THE BEDSIDE COMMODE. ASSISTED BACK TO BED. PATIENT TOLERATED WELL. CALL LIGHT WITHIN REACH. WILL CONTINUE TO MONITOR.
[2020-03-05] MEDS: BLOOD GLUCOSE MONITORING 1 DEV DEV FS SCH ×2 (08:58→20:40)
[2020-03-05] MEDS: INSULIN LISPRO SLIDING SCALE 100 UNITS/ML VIAL SUBQ PRN ×2 (08:59→20:41)
[2020-03-05 11:06] LABS: ANION GAP 11.3 (8-16); CARBON DIOXIDE 27.4 mmol/L (21-32); POTASSIUM 3.7 mmol/L (3.5-5.1)
[2020-03-05 11:12] LABS: ALBUMIN 2.8 g/dL (3.4-5.0); BILIRUBIN,DIRECT 0.1 mg/dL (0.0-0.3); TOTAL BILIRUBIN 0.3 mg/dL (0.0-1.0)
--- NOTE | 2020-03-05 11:25 | NUR ---
PT CAME TO EVALUATE PATIENT. PER PT VIRGILIO, PATIENT AMBULATED 10 FEET ON ROOM AIR AND O2SAT WENT DOWN TO 86% - 88%. PATIENT WAS ASSISTED BACK TO BED. PATIENT WAS LEFT ON ROOM AIR IN BED O2SAT AT 90%. WITH 4LNC O2SAT 94%. RESP EVEN AND UNLABORED. WILL CONTINUE TO MONITOR.
[2020-03-05 12:00] VITALS: BP 130/51
[2020-03-05] MEDS: AZITHROMYCIN 500 MG in DEXTROSE 5% 250 ML IV SCH (12:16)
--- NOTE | 2020-03-05 12:33 | NUR ---
PATIENT IS COMFORTABLY IN BED. DENIES OF PAIN. COUGHS IMPROVED FROM PHENERGAN PRN EARLIER. ZITHROMAX IVPB GIVEN. RESP EVEN AND UNLABORED ON 4L NC. PATIENT IS SITTING UP EATING HER LUNCH. CALL LIGHT WITHIN REACH. WILL CONTINUE TO MONITOR.
--- NOTE | 2020-03-05 13:47 | NUR ---
PER NICHOLAS CROWELL DISCUSSED IN BED HUDDLE TITRATED FIO2 TO ROOM AIR SATURATION 97% ON SUPPLEMENTAL OXYGEN AT 3 LPM POST MDI THERAPY TITRATED FIO2 TO ROOM AIR MARIA DE JESUS/RN NOTIFIED
--- NOTE | 2020-03-05 14:49 | NUR ---
03/05/20 RD INITIAL ASSESSMENT COMPLETED PLEASE REFER TO NUTRITION ASSESSMENT UNDER CARE ACTIVITY FOR ESTIMATED NUTRITIONAL NEEDS. 1. CONTINUE CCHO 60GM AND CARDIAC DIET TOLERATED 2. RECOMMEND GLUCERNA BID 3. RD TO FOLLOW-UP 3-5 DAYS, MODERATE RISK MARIA DEL CARMEN SANTILLAN, RD
[2020-03-05 16:00] VITALS: BP 126/57
[2020-03-05] MEDS: REMDESIVIR (EUA) 100 MG in NACL 0.9% 100 ML IV SCH (17:11)
--- NOTE | 2020-03-05 17:29 | NUR ---
REMDESIVIR IVPB STARTED. PATIENT IS SITTING COMFORTABLY IN BED. DENIES OF ANY PAIN AT THIS TIME. PATIENT IS TOLERATING WELL ON ROOM AIR AT THIS TIME. O2SAT 93%. PATIENT WAS INSTRUCTED TO USE CALL LIGHT FOR ASSIST IF NEEDED WHEN SHE GETS OUT TO USE THE BEDSIDE COMMODE. PATIENT VERBALIZED UNDERSTANDING. WILL CONTINUE TO MONITOR.
--- NOTE | 2020-03-05 18:50 | NUR ---
PATIENT RESTING COMFORTABLY IN BED. RESP EVEN AND UNLABORED ON ROOM AIR O2SAT 96%. PATIENT GOT OUT OF BED TO USE THE BEDSIDE COMMODE, DENIED OF ANY SOB OR COUGHS. CALL LIGHT WITHIN REACH. WILL CONTINUE TO MONITOR.
--- NOTE | 2020-03-05 19:10 | NUR ---
ENDORSED PATIENT TO NIGHT NURSE. PATIENT IN STABLE CONDITION.
--- NOTE | 2020-03-05 19:12 | NUR ---
RECEIVED BEDSIDE REPORT FROM DAY SHIFT NURSE. PATIENT IS AWAKE AND COOPERATIVE. RESPIRATION EVEN UNLABORED ON ROOM AIR. NO DISTRESS NOTED. SKIN IS WARM AND DRY. IV PATENT AND INTACT. PLAN OF CARE WAS DISCUSSED. ALL SAFETY MEASURES IN PLACE. BED IS AT LOW POSITION. ALL LIGHT WITHIN REACH AND VERBALIZES ITS USE. WILL CONTINUE TO MONITOR.
--- NOTE | 2020-03-05 19:32 | NUR ---
ENDORSED PATIENT TO NORMA FOR CONTINUITY OF CARE. PATIENT IN STABLE CONDITION.
[2020-03-05 20:00] VITALS: BP 141/54
--- NOTE | 2020-03-05 20:00 | NUR ---
INITIAL ASSESSMENT DONE. VITALS WERE TAKEN. PATIENT SATING 95% ON ROOM AIR. NO DISTRESS NOTED. WILL CONTINUE TO MONITOR.
--- NOTE | 2020-03-05 20:40 | NUR ---
ALL SCHEDULED MEDS WERE GIVEN PER ORDER. NO ASE NOTED. WILL CONTINUE TO MONITOR.
--- NOTE | 2020-03-05 21:10 | NUR ---
RECEIVED PT FROM AM SHIFT. PT SEEN AND ASSESSED. PT ON ROOM AIR WITH SPO2 OF 95%. PT IS IN NO APPARENT RESPIRATORY DISTRESS AT THIS TIME. PRN TX NOT INDICATED AT THIS TIME. WILL CONTINUE TO MONITOR PT.
--- NOTE | 2020-03-05 22:29 | NUR ---
CHECKED PATIENT. PATIENT WATCHING TV RESPIRATION EVEN UNLABORED ON ROOM AIR. SATING 92%. WILL CONTINUE TO MONITOR.
--- NOTE | 2020-03-05 22:55 | NUR ---
RECEIVED PT FROM BELEN RN PT SLOVENIAN SPEAKER AAOX4 AMBULATORY COVID + STABLE AT THIS TIME NOT SOB NOTED, ON TELMETRY SB NOT DISTRESS NOTED INITIAL ASSESSSMENT DONE
--- NOTE | 2020-03-05 22:57 | NUR ---
ENDORSED PATIENT TO COURTNEY FOR CONTINUITY OF CARE. PATIENT IN STABLE CONDITION.
[2020-03-06] VITALS: BP 117/57
[2020-03-06 04:00] VITALS: BP 130/51
--- NOTE | 2020-03-06 04:00 | NUR ---
SPONGE BATH GIVEN LINEN CHANGED NOT DISTRESS NOTED AT RA ON TELMETRY SB
--- NOTE | 2020-03-06 05:12 | NUR ---
PT VERBALIZED TO FEEL BETTER AT RA O;N TELEMETRYSB PT USING BSC VOIDING ELL
[2020-03-06] MEDS: ALBUTEROL HFA MDI 90 MCG/ACTUATION 8 GM INH SCH ×3 (06:39→07:24)
[2020-03-06 06:43] LABS: ANION GAP 11.6 (8-16); CARBON DIOXIDE 25.1 mmol/L (21-32); CREATININE 0.8 mg/dL (0.6-1.3); POTASSIUM 3.7 mmol/L (3.5-5.1)
[2020-03-06 06:51] LABS: ALBUMIN 2.7 g/dL (3.4-5.0); BILIRUBIN,DIRECT 0.1 mg/dL (0.0-0.3); TOTAL BILIRUBIN 0.4 mg/dL (0.0-1.0)
--- NOTE | 2020-03-06 06:54 | NUR ---
PT REMAIN STABLE NOT FEVER, NOT SOB USING BSC , PT ON TELE SB PT WILL BE ENDORSED TO DAY SHIFT NURSE FOR CONTINUE ;OF CARE
--- NOTE | 2020-03-06 07:15 | NUR ---
RECEIVED REPORT FROM DINING ROOM ATTENDANT NURSE COURTNEY FOR CONTINUITY OF CARE. PATIENT IN STABLE CONDITION. RESPIRATIONS EVEN AND UNLABORED. IV INTACT AND PATENT. BED IN LOW POSITION. BED ALARM ON. CALL LIGHT WITHIN REACH. WILL CONTINUE TO MONITOR.
[2020-03-06 08:00] VITALS: BP 125/49
[2020-03-06] MEDS: lisinopriL 10 MG TAB PO SCH (08:45)
--- NOTE | 2020-03-06 08:45 | NUR ---
GAVE ORDERED DUE MEDICATIONS AT THIS TIME. PATIENT TOLERATED WELL. BED IN LOW POSITION. BED ALARM ON. CALL LIGHT WITHIN REACH. WILL CONTINUE TO MONITOR.
[2020-03-06] MEDS: amLODIPine 5 MG TAB PO SCH (08:46)
[2020-03-06] MEDS: ENOXAPARIN 80 MG/0.8 ML SYR SUBQ SCH (08:48)
[2020-03-06] MEDS: BLOOD GLUCOSE MONITORING 1 DEV DEV FS SCH (09:29)
[2020-03-06] MEDS ORDERED: DEC1 PO (10:29)
[2020-03-06] MEDS ORDERED: APIX2.5 PO (10:29)
--- NOTE | 2020-03-06 11:08 | NUR ---
CHANGING LINENS AT THIS TIME. PATIENT SAT ON BEDSIDE COMMODE AT THIS TIME. ASSISTED PATIENT WITH TRANSFERRING BACK TO BED. BED IN LOW POSITION. BED ALARM ON. CALL LIGHT WITHIN REACH. WILL CONTINUE TO MONITOR.
--- NOTE | 2020-03-06 11:40 | NUR ---
PATIENT INFORMED OF UPCOMING DISCHARGE WITH HOME O2.NURSE INFORMED PATIENT INSURANCE APPROVED THE HOME O2. PATIENT REFUSED HOME O2 AND STATED "I WILL TRY TO GO HOME WITHOUT IT". NURSE INFORMED PATIENT THE RISKS AND BENEFITS OF HOME O2. PATIENT REFUSED AGAIN. WILL INFORM DR. GUERRA Addendum: 03/06/20 at 1621 by Loreta Hernandez RN DR. GUERRA INFORMED OF PATIENT REFUSAL OF HOME O2. PATIENT SATURATION 95% ROOM AIR. TORTj INFORM SS TO CANCEL HOME O2.
[2020-03-06 12:00] VITALS: BP 126/57
--- NOTE | 2020-03-06 14:00 | NUR ---
ASSISTED PATIENT TO BEDSIDE COMMODE. PATIENT TOLERATED WELL. ASSISTED PATIENT GETTING DRESSED FOR UPCOMING DISCHARGE. PACKED UP BELONGINGS AT THIS TIME.
--- NOTE | 2020-03-06 15:00 | NUR ---
GAVE DISCHARGE INSTRUCTIONS AND INFORMED PRESCRIPTION SENT TO HOME PHARMACY. GAVE INSTRUCTION PACKET FOR SELF QUARANTINE. PATIENT VERBALIZED UNDERSTANDING OF DISCHARGE INSTRUCTIONS. IV REMOVED, LUMEN INTACT. ID BAND REMOVED. PATIENT WHEELED TO LOBBY IN WHEELCHAIR IN STABLE CONDITION. FAMILY WAITING WITH VEHICLE.
== END 2020-03-06 15:05 | disposition home or self-care (01) | DRG 177 ==
LOC: MED 20:55 → MTU 03-01 02:58
PROVIDERS: ADMIT Internal Medicine Pulmonary Disease; ATTEND Internal Medicine Pulmonary Disease
PROC: XW033E5 Introduction of Remdesivir Anti-infective into Peripheral Vein, Percutaneous Approach, New Technology Group 5 (ICD-10-PCS; principal; 2020-03-04)
DX: U07.1 COVID-19 (principal); J96.01 Acute respiratory failure with hypoxia; J12.89 Other viral pneumonia; I10 Essential (primary) hypertension; E78.5 Hyperlipidemia, unspecified; E11.9 Type 2 diabetes mellitus without complications; Z79.84 Long term (current) use of oral hypoglycemic drugs; Z79.899 Other long term (current) drug therapy
CPT/HCPCS: 36415; 71045; 80048; 80053; 80076; 82728; 82948; 83615; 83690; 83880; 84484; 85025; 85379; 85384; 86140; 87081; 93005; 94664; 96361; 96365; 97110; 97116; 97161-GP; 97530; 99285; J0456; J0696; J1650; J1815; J2543; J7030; J7060; Q0092; U0003-CS

== ENCOUNTER 2020-12-03 10:16 | Emergency (ER) | payer OTHER, MEDICAID ==
[~2020-12-03] VITALS: Ht 160 cm; Wt 87.1 kg
[~2020-12-03 10:16] MED LIST changes: +APIX2.5 PO; -ATOR40TA PO; +DEC1 PO; +FISH100053 PO; -HYDR-5122 PO; +LIP80 PO; +METO100T14 PO; -ORE25; -VITD1000 PO
[2020-12-03 10:22] VITALS: BP 147/82
--- NOTE | 2020-12-03 10:30 | NUR ---
Patient ambulated to bed 5. RN evaluating the patient at bedside.
--- NOTE | 2020-12-03 10:35 | NUR ---
70YO F PRESENTS TO ED WITH WORSENING L HIP PAIN X 2 YEARS. 10/10, [place], RADIATING DOWN TO LEFT LEG. PT UNDERWENT HIP SURGERY IN 2019. PT ALSO NOTED GRADUAL SWELLING OF BILATERAL FEET. DENIES NUMBNESS OF EXTREMITIES, DENIES CHEST PAIN. AOX4. CLEAR BREATH SOUNDS. NORMAL RATE REGULAR RHYTM. 5/5 STRENGTH OF RLE, 4/5 STRENGTH OF LLE. PT ABLE TO AMBULATE WITH CANE. BED IN LOWEST POSITION, LOCKED, BED RAIL UPX1. ERMD MADE AWARE OF PT STATUS. PMH: DM, HTN, HLD MEDS: UNRECALLED NKA
--- NOTE | 2020-12-03 10:42 | NUR ---
Dr. Sotelo is evaluating the patient at bedside.
--- NOTE | 2020-12-03 11:04 | NUR ---
Patient returned from CT scan/x-ray. RN reevaluating the patient at bedside.
[2020-12-03] MEDS: MORPHINE SULFATE 4 MG/ML SYR IM ONE (11:13)
[2020-12-03] MEDS: KETOROLAC 15 MG/ML VIAL IM ONE (11:14)
[2020-12-03] MEDS ORDERED: HYDR-5080 PO (13:09)
[2020-12-03 13:26] VITALS: BP 147/82
--- NOTE | 2020-12-03 13:26 | NUR ---
Patient discharged with v/s stable. Written and verbal after care instructions given and explained. Patient alert, oriented and verbalized understanding of instructions. Ambulatory with steady gait. All questions addressed prior to discharge. ID band removed. Patient advised to follow up with PMD. Rx of Hydrocodone/Acetaminophen given. Patient educated on indication of medication including possible reaction and side effects. Opportunity to ask questions provided and answered.
[2020-12-03] MEDS: HYDROcodone/APAP 5/325 MG 1 TAB TAB PO ONE (13:35)
== END 2020-12-03 13:26 | disposition home or self-care (01) ==
LOC: MED 10:16
DX: M25.552 Pain in left hip (principal); E11.9 Type 2 diabetes mellitus without complications; I10 Essential (primary) hypertension; Z79.84 Long term (current) use of oral hypoglycemic drugs; Z79.899 Other long term (current) drug therapy
CPT/HCPCS: 72192; 96372; 99284; J1885; J2270

== ENCOUNTER 2021-08-02 16:07 | Emergency (ER) | payer OTHER, MEDICAID ==
[~2021-08-02] VITALS: Ht 160 cm; Wt 88.5 kg
[~2021-08-02 16:07] MED LIST changes: +HYDR-5080 PO; +OMEP-278 PO; -OMEP20TC12 PO
[2021-08-02 16:50] VITALS: BP 132/71
[2021-08-02] MEDS ORDERED: ACETAMIN/CODEINE 120/12MG-5ML 5 ML UDC PO ONE (19:50)
--- NOTE | 2021-08-02 20:16 | NUR ---
COVID SWAB COLLECTED AND GIVEN TO LAB
[2021-08-02] MEDS ORDERED: ROBAC PO ×2 (21:38→21:40)
[2021-08-02 21:45] VITALS: BP 132/71
--- NOTE | 2021-08-02 21:45 | NUR ---
Patient discharged with v/s stable. Written and verbal after care instructions given and explained. Patient alert, oriented and verbalized understanding of instructions. Ambulatory with steady gait. All questions addressed prior to discharge. ID band removed. Patient advised to follow up with PMD. Rx of GUAIFENESIN - CODEINE given. Patient educated on indication of medication including possible reaction and side effects. Opportunity to ask questions provided and answered.
== END 2021-08-02 21:45 | disposition home or self-care (01) ==
LOC: MED 16:07
DX: J20.9 Acute bronchitis, unspecified (principal); Z20.822 Contact with and (suspected) exposure to COVID-19; R07.89 Other chest pain; R50.9 Fever, unspecified; R06.02 Shortness of breath; E11.9 Type 2 diabetes mellitus without complications; I10 Essential (primary) hypertension; Z98.890 Other specified postprocedural states; Z79.84 Long term (current) use of oral hypoglycemic drugs; Z79.899 Other long term (current) drug therapy
CPT/HCPCS: 71045; 99284; U0003